=== PATIENT | female | born 1950 | race Caucasian/White ===

== ENCOUNTER → 2017-10-15 | Outpatient (CLI) | payer MEDICARE, OTHER ==
[~2017-10-15] MED LIST: ADVAIR 500/501 DISK IH; ASPIRIN EC325 MG PO; ATORVASTATIN CA40 MG PO; GLUCOPHAGE1000 MG PO; GLUCOPHAGE500 MG PO; GLUCOTROL5 MG PO; LEVO-T50 MCG PO; LEVOTHYROXINE50 MCG PO; LIPITOR40 MG PO; LISINOPRIL10 MG PO; LISINOPRIL2.5 MG PO; LO-DOSE ASPIRIN81 M1 PO; METFORMIN HCL1000 MG PO; NOVOLOG PE100 UNITS/ SC; PANTOPRAZOLE SO40 MG PO; PRAVASTATIN SOD80 MG PO; PROTONIX40 MG PO; ZESTRIL10 MG PO
== END | disposition home or self-care (01) ==
LOC: CDC 08:41
DX: Z01.810 Encounter for preprocedural cardiovascular examination (principal); D17.0 Benign lipomatous neoplasm of skin and subcutaneous tissue of head, face and neck; R94.31 Abnormal electrocardiogram [ECG] [EKG]
CPT/HCPCS: 93000

== ENCOUNTER 2017-10-22 07:57 | Day surgery (SDC) | payer OTHER ==
[~2017-10-22] VITALS: Ht 144.8 cm; Wt 59.4 kg
[2017-10-22 08:26] VITALS: BP 137/75
[2017-10-22] MEDS ORDERED: HYDROCODON-ACE1 EAC7 PO (11:16)
[2017-10-22 12:03] VITALS: BP 140/67
== END 2017-10-22 12:55 | disposition home or self-care (01) ==
LOC: SDC 07:57
PROVIDERS: Student in an Organized Health Care Education/Training Program
DX: L72.0 Epidermal cyst (principal); I10 Essential (primary) hypertension; E03.9 Hypothyroidism, unspecified; E78.00 Pure hypercholesterolemia, unspecified; E11.9 Type 2 diabetes mellitus without complications; Z79.82 Long term (current) use of aspirin; K21.9 Gastro-esophageal reflux disease without esophagitis; Z87.891 Personal history of nicotine dependence; Z79.84 Long term (current) use of oral hypoglycemic drugs; Z86.718 Personal history of other venous thrombosis and embolism
CPT/HCPCS: 82948; 84132; 88304; J0690; J2250; J2370; J2405; J3010